=== PATIENT | male | born 1960 ===

== ENCOUNTER 2022-10-16 05:22 | Day surgery (SDC) | payer OTHER ==
[~2022-10-16] VITALS: Ht 167.6 cm; Wt 80.7 kg
[~2022-10-16 05:22] MED LIST: AMLODIPINE BESY10 MG PO; CLONAZEPAM1 MG PO; HYDROCHLOROTHIA25 MG PO; JANUMET 50-5001 EACH PO; PROZAC20 MG PO; RESTORIL30 M1 PO; ZESTRIL40 M1 PO
[2022-10-16] MEDS ORDERED: TRAMADOL HCL50 MG PO (09:55)
== END 2022-10-16 13:10 | disposition home or self-care (01) ==
LOC: CIR.AMB 05:22
PROVIDERS: ATTEND Surgery
DX: N52.01 Erectile dysfunction due to arterial insufficiency (principal); Z20.822 Contact with and (suspected) exposure to COVID-19; E11.9 Type 2 diabetes mellitus without complications; I10 Essential (primary) hypertension
CPT/HCPCS: 54405; C1813